=== PATIENT | female | born 1995 | race Caucasian/White ===

== ENCOUNTER 2017-01-24 16:50 | Emergency (ER) | payer SELFPAY ==
[2017-01-24] MEDS ORDERED: Lactated Ringer's 1,000 ML IV ONE (18:30)
--- NOTE | 2017-01-24 18:49 | OBDCSUM ---
Datetime: 01/24/2017 18:48 Discharged to, Provider: Home Follow up at, Provider: 2 days Follow up in weeks, Provider: clinic Discharge Comment, Provider: dc home labor ins given f/u in clinic in 2 days Discharge Diagnosis Prov Other: 39weeks false labor
--- NOTE | 2017-01-24 18:49 | OBHP ---
Datetime: 01/24/2017 18:47 Admit Comment, IP Provider: pt was examined ayt bed side ve closed x 2 ivf given dc home labor ins given f/u in clinic in 2 days FHR - Baseline A Provider: 150 Contraction Comments Provider: q1-5 Vital Signs Provider: Reviewed; Within Normal Limits NICHD Variability Prov Fetus A: Moderate 6-25bpm NICHD Accel Fetus A IP Provider: 15X15 FHR Category Provider Fetus A: Category I Dilatation, Provider: 0 Effacement, Provider: 0 Station, Provider: -3 Datetime: 01/24/2017 17:14 IP Adm Impression: Term, intrauterine IP Admit Plan: Observation/Evaluation Comments, ACOG Physical Exam: VS: 109/76 82 Gen: AAOx3, NAD Abd: soft, gravid, no fundal tenderness Ext: no clubbing, cyanosis, edema SVE: closed/thick/high EFM: 140, moderate variability, +accels, -decels CTX: q2-5min Bedside Sonogram - vertex presentation EGA AdmitDate IP: 39.4 IP Chief Complaint: Uterine contractions NICHD Decel Fetus A IP Provider: None
[2017-01-25 00:17] VITALS: BP 120/73; PULSE 74; TEMP 98.1
== END 2017-01-24 18:55 | disposition left against medical advice (07) ==
LOC: C.EROB 16:50
DX: O47.1 False labor at or after 37 completed weeks of gestation (principal); Z3A.39 39 weeks gestation of pregnancy
CPT/HCPCS: 99283; J7120

== ENCOUNTER 2017-01-26 17:23 | Emergency (ER) | payer SELFPAY ==
--- NOTE | 2017-01-26 18:57 | OBHP ---
Datetime: 01/26/2017 18:47 IP Adm Impression: Term, intrauterine ; No Active Labor IP Admit Plan: Observation/Evaluation; Discharge home Admit Comment, IP Provider: IUP at 39.6wks, recently emigrayted from [place] without records. She reports that she is almost due and started having pelvic pressure without vaginal bleeding, Feel s good movements. Export- Q 6, FHR- category 1, Cx-1/50/-3, Vtx presentation. Assessment: IUP at Term No Active labor Plan: Pt requests to go home and walk around and return when labor becomes active. Labor instructions given. kick count explained.. Pt to register with and OB clinic and return by Friday if no active labor. D/C home. Pelvic Type - PN: Adequate Extremities - PN: Normal Abdomen - PN: Normal Back - PN: Normal Breast - PN: Normal Lungs - PN: Normal Heart - PN: Normal Thyroid - PN: Normal Neurologic - PN: Normal HEENT - PN: Normal General - PN: Normal Presentation-Admit: Vertex FHR - Baseline A Provider: 136 Membranes, Provider: Intact Gestation - Est Wks by US: 39.6 EGA AdmitDate IP: 39.6 Vital Signs Provider: Reviewed IP Chief Complaint: Uterine contractions; Maternal discomfort NICHD Variability Prov Fetus A: Moderate 6-25bpm NICHD Accel Fetus A IP Provider: 15X15 FHR Category Provider Fetus A: Category I NICHD Decel Fetus A IP Provider: None Dilatation, Provider: 1 Effacement, Provider: 50 Station, Provider: -3 Genitourinary Exam: Normal DTRs - PN: Normal
[2017-01-26 23:02] VITALS: BP 102/66; PULSE 73; RESP 20; TEMP 97.3; O2SAT 99
== END 2017-01-26 19:01 | disposition home or self-care (01) ==
LOC: C.EROB 17:23
DX: O47.1 False labor at or after 37 completed weeks of gestation (principal); Z3A.39 39 weeks gestation of pregnancy

== ENCOUNTER 2017-01-27 03:29 | Inpatient (IN) | payer MEDICAID ==
[2017-01-27 04:38] VITALS: BMI 26.5
[2017-01-27] MEDS ORDERED: Penicillin G 5 Million Unit Vial IVPB ONE ×2 (04:44→05:43)
[2017-01-27] MEDS ORDERED: Lactated Ringer's 1,000 ML IV SCH (04:45)
[2017-01-27] MEDS ORDERED: Bupivacaine HCl 0.25% PF (10 ml) Inj ONE (05:06)
[2017-01-27] MEDS ORDERED: Bupivacaine 0.125%/FentaNYL 200 ML EPI ONE (05:07)
--- NOTE | 2017-01-27 05:16 | OBHP ---
Datetime: 01/27/2017 05:10 IP Adm Impression: Term, intrauterine ; Active labor IP Admit Plan: Admit to unit; Initiate labor protocol Admit Comment, IP Provider: IUP at 40wk c/o intense contraction pains since last night. She was eval uated here in the afternoon and return here with stronger contraction pains. Denies VB or LOF. [place]- Q 2-3 FHR- Category 1, Cx- 4/60/-3 Vtx Assessment: IUP at 40wks in Active LABOR pLAN: aDMIT TO lnd. mONITOR THE PROGRESS OF labor. Pelvic Type - PN: Adequate Extremities - PN: Normal Abdomen - PN: Normal Back - PN: Normal Breast - PN: Normal Lungs - PN: Normal Heart - PN: Normal Thyroid - PN: Normal Neurologic - PN: Normal HEENT - PN: Normal General - PN: Normal Presentation-Admit: Vertex FHR - Baseline A Provider: 140 Membranes, Provider: Intact Contraction Comments Provider: Q 2-3 Gestation - Est Wks by US: 40.0 EGA AdmitDate IP: 40.0 IP Chief Complaint: Uterine contractions; Maternal discomfort NICHD Variability Prov Fetus A: Moderate 6-25bpm NICHD Accel Fetus A IP Provider: [id number] FHR Category Provider Fetus A: Category I NICHD Decel Fetus A IP Provider: None Dilatation, Provider: 4 Effacement, Provider: 60 Station, Provider: -2 Genitourinary Exam: Normal DTRs - PN: Normal
[2017-01-27 05:30] LABS: BASO % 0.3 % (0.0-2.0); EOS % 0.5 % (0.0-4.0); HEMATOCRIT 33.8 % (34.0-47.0); LYMPH # 1.3 K/uL (1.0-4.3); MEAN CELL VOLUME 88.8 fL (81.0-99.0); MEAN CORPUSCULAR HGB CONC 34.9 g/dL (33.0-37.0); MEAN PLATELET VOLUME 8.6 fL (7.2-11.7); MONO # 0.7 K/uL (0.0-0.8); MONO % 9.5 % (0.0-10.0); NRBC % 0.1 % (0.0-2.0); RED CELL DISTRIBUTION WIDTH 13.6 % (11.5-14.5); WHITE BLOOD COUNT 7.8 K/uL (4.8-10.8)
[2017-01-27 05:40] LABS: CHLORIDE 103 mmol/L (98-107); POTASSIUM 3.8 mmol/L (3.6-5.2); RBC URINE 4 /hpf (0-3); SODIUM 136 mmol/L (132-148); URINE BILIRUBIN NEGATIVE (NEGATIVE); URINE BLOOD 1+ (NEGATIVE); URINE COLOR Yellow (YELLOW); URINE GLUCOSE (UA) NORMAL (Normal); URINE KETONE TRACE mg/dL (NEGATIVE); URINE LEUKOCYTE ESTERASE NEG Leu/uL (Negative); URINE PROTEIN NEGATIVE (NEGATIVE); URINE UROBILINOGEN NORMAL mg/dL (0.2-1.0); WBC URINE 3 /hpf (0-5)
[2017-01-27 05:42] LABS: GFR AFRICAN-AMERICAN > 60
[2017-01-27 05:43] LABS: ALKALINE PHOSPHATASE 156 U/L (38-126); ALT/SGPT 27 U/L (9-52); AST/SGOT 17 U/L (14-36); BILIRUBIN,TOTAL 1.1 mg/dL (0.2-1.3); BLOOD UREA NITROGEN 7 mg/dL (7-17); CALCIUM 9.2 mg/dl (8.6-10.4); CARBON DIOXIDE 18 mmol/L (22-30); GLUCOSE,RANDOM 70 mg/dL (65-105); TOTAL PROTEIN 7.1 g/dL (6.3-8.3)
[2017-01-27] MEDS ORDERED: Oxytocin 30 UNIT 30 UNITS/500 ML BAG IV PRN (07:09)
--- NOTE | 2017-01-27 07:09 | OBPN ---
Datetime: 01/27/2017 07:05 IP Progress Impression: Normal progression of labor IP Procedures: Sterile Vag Exam FHR - Baseline A Provider: 130 IP Progress Note Comment: pt was seen at bed side ve 4/80/-2 srom, meconium start pitocin anticipaye Vital Signs Provider: Reviewed; Within Normal Limits NICHD Accel Fetus A IP Provider: 15X15 FHR Category Provider Fetus A: Category I NICHD Variability Prov Fetus A: Moderate 6-25bpm Dilatation, Provider: 4 Effacement, Provider: 80 Station, Provider: -2 Datetime: 01/27/2017 05:10 Membranes, Provider: Intact Contraction Comments Provider: Q 2-3 Gestation - Est Wks by US: 40.0 Presentation-Admit: Vertex NICHD Decel Fetus A IP Provider: None
[2017-01-27] MEDS ORDERED: Dextrose 5%/Lactated Ringer's 1,000 ML IV SCH (08:15)
--- NOTE | 2017-01-27 08:45 | OBPN ---
Datetime: 01/27/2017 08:43 IP Progress Impression: Normal progression of labor IP Procedures: Sterile Vag Exam IP Progress Plan: Continue present management Contraction Comments Provider: q1-4 FHR - Baseline A Provider: 130 IP Progress Note Comment: pt was examined at bed side ve 6/80/-2 cont pitocin anticipate Vital Signs Provider: Reviewed; Within Normal Limits NICHD Accel Fetus A IP Provider: 15X15 FHR Category Provider Fetus A: Category I NICHD Variability Prov Fetus A: Moderate 6-25bpm Dilatation, Provider: 6 Effacement, Provider: 80 Station, Provider: -2 NICHD Decel Fetus A IP Provider: Variable
--- NOTE | 2017-01-27 12:37 | OBPN ---
Datetime: 01/27/2017 12:34 IP Progress Impression: Normal progression of labor IP Procedures: Sterile Vag Exam FHR - Baseline A Provider: 130 IP Progress Note Comment: pt was examined at bed side ve fd/100/0 cont pitocin will start pushing Vital Signs Provider: Reviewed; Within Normal Limits NICHD Variability Prov Fetus A: Moderate 6-25bpm Dilatation, Provider: 10 Effacement, Provider: 100 Station, Provider: 0 NICHD Decel Fetus A IP Provider: Variable
[2017-01-27] MEDS ORDERED: Benzocaine/Menthol 20%-0.5% Topical Spray (60 ml) TOP PRN (12:53)
[2017-01-27] MEDS ORDERED: Oxycodone/Acetaminophen 5/325 mg Tab PO PRN (12:53)
[2017-01-27] MEDS ORDERED: cefOXitin IV 1 gm in Dextrose 1 GM/50 ML BAG IVPB ONE (13:10)
[2017-01-27] MEDS ORDERED: Oxytocin 20 units in LR 2,000 ML IV ONE (13:13)
[2017-01-27] MEDS ORDERED: cefOXitin IV 2 gm in Dextrose 2 GM/50 ML BAG IVPB ONE (13:13)
[2017-01-27] MEDS ORDERED: Oxytocin 10 Units/ml Inj ONE (13:14)
--- NOTE | 2017-01-27 13:17 | PCM.SURG1 ---
Surgeon's Initial Post Op Note - Surgeon's Notes Surgeon: dr parra Cardiopulmonary Technician: dr herman Anesthesia Administered By: dr bright Pre-Operative Diagnosis: 21 yr arrest of descent Operative Findings: see the op report Post-Operative Diagnosis: same with dop Operation Performed: primary section Specimen/Specimens Removed: cord gas. cord blood. placente Estimated Blood Loss: EBL {In ML}: 800 Blood Products Given: N/A Drains Used: No Drains Post-Op Condition: Good Date of Surgery/Procedure: 01/27/17 Time of Surgery/Procedure: 15:00
[2017-01-27] MEDS ORDERED: Sodium Bicarbonate (8.4%) 50 mEq Vial ONE (13:30)
[2017-01-27] MEDS ORDERED: Propofol 10 mg/ml Inj (20 ML) ONE (13:44)
[2017-01-27] MEDS ORDERED: Succinylcholine Chloride 20 mg/ml Syr (5 ml) IV ONE (13:54)
[2017-01-27] MEDS ORDERED: Midazolam 2 MG/2 ML VIAL ONE (13:54)
[2017-01-27] MEDS ORDERED: Ketamine 50 mg/ml Inj (10 ml) ONE (13:55)
[2017-01-27] MEDS ORDERED: Morphine 1 mg/ml preservative-free Inj(Duramorph) ONE (14:09)
[2017-01-27] MEDS ORDERED: cefOXitin IV 2 gm in Saline 2 GM in Sodium Chloride 0.9% 50 ML IV STA (14:30)
[2017-01-27] MEDS ORDERED: DiphenhydrAMINE 50 mg/ml Inj IVP PRN (14:59)
[2017-01-27] MEDS: Simethicone 80 mg Chewtab PO SCH ×2 (17:05→22:30)
--- NOTE | 2017-01-28 02:51 | OP ---
PROCEDURE DATE: 01/27/2017 PREOPERATIVE DIAGNOSIS: A 21-year-old 1, para 0 at 40 weeks . POSTOPERATIVE DIAGNOSIS: A 21-year-old 1, para 0 at 40 weeks . PROCEDURE: Primary . SURGEON: Allan Vargas MD POOL MANAGER: Stewart Hurd MD, who was present throughout the surgery for exposure, retraction, pushing at the time of the delivery. TYPE OF ANESTHESIA: Epidural. ANESTHESIA ADMINISTERED BY: Kemar Bui MD ESTIMATED BLOOD LOSS: 800 mL. COMPLICATIONS: None. DESCRIPTION OF PROCEDURE: After informed consent was obtained, the patient was brought to the operating room and placed on table, where epidural anesthesia was given. The patient was prepped and draped in normal sterile fashion. About 2 cm above the pubic bone, a skin incision was made with a knife, the subcutaneous cut with a Bovie. The fascia was then excised on both the sides using curved Wilson scissors. The fascia was from the site of the pubic bone and at the side of the umbilicus. Rectus muscle was and was excised. Peritoneum was . We went bluntly into the abdominal cavity. Bladder blade was placed. Bladder flap was created. Lower uterine segment incision was made with a knife. We did this on both sides using curved Wilson scissors. Baby was delivered in a DOP position. Now cord was clamped and cut. Baby was handed to the awaiting herd tester. Cord gas was taken. Placenta delivered manually and sent to the Pathology. Uterus was exteriorized and cleared of all clots and debris. It was boggy, so lot of massage was done. Then the extra Pitocin, 40 units of Pitocin was given and Methergine was given. Lot of massage was done and it was better. Uterine incision was closed using #1 Vicryl in running interlocking fashion. Second layer was closed with the same stitch. Cul-de-sac was cleared of all the clots and debris. Uterus was returned back to the abdominal cavity. Gutters were cleared of all the clots and debris. After that, peritoneum was closed using 2-0 Vicryl in running interlocking fashion. Muscle was closed using 2-0 Vicryl in running interlocking fashion. The fascia was closed using #1 Vicryl in running interlocking fashion. Subcutaneous tissue was closed with 0 Vicryl in interrupted fashion. Skin was closed using savanna. The patient tolerated the procedure well. Lap, sponge, and instrument counts were correct x2. Allan Vargas MD
[2017-01-28 08:31] LABS: HEMATOCRIT 29.5 % (34.0-47.0); MEAN CELL VOLUME 90.3 fL (81.0-99.0); MEAN CORPUSCULAR HGB CONC 34.3 g/dL (33.0-37.0); MEAN PLATELET VOLUME 8.5 fL (7.2-11.7); RED CELL DISTRIBUTION WIDTH 14.1 % (11.5-14.5)
[2017-01-28 08:33] LABS: WHITE BLOOD COUNT 12.2 K/uL (4.8-10.8)
[2017-01-28] MEDS: Simethicone 80 mg Chewtab PO SCH ×4 (09:25→22:32)
--- NOTE | 2017-01-28 11:04 | OBPPN ---
Datetime: 01/28/2017 11:00 PP Pain Prov: Within normal limits PP Nausea Prov: Denies PP Flatus Prov: Yes PP BM Prov: No PP Heart Prov: Normal PP Lungs Prov: Normal PP Abdomen/Uterus Prov: Normal PP Lochia Prov: Normal PP CVA Tenderness Prov: Normal PP Extremities Prov: Normal PP C/S Incision Prov: Normal PP Progress Prov: Normal PP Impression Prov: Normal progression PP Plan Prov: Continue present management PP Progress Note Prov: S-patient states that her pain is well controlled.Breast feeding.Denies nause a, vomiting, headache, chest pain, shortness of breath, numbness or tingling in hands and feet O-VS Reviewed Abdomen soft and nontender Fundus firm and below umbilicus extremities no calf tenderness Incision clean dry and intact A/P Patient s/p csection pod 1 doingw ell -continue routine post op care -follow up am cbc -monitor closely Vital Signs Provider PP: Reviewed; Within Normal Limits
[2017-01-28] MEDS: Oxycodone/Acetaminophen 5/325 mg Tab PO PRN (19:41)
[2017-01-29] MEDS: Oxycodone/Acetaminophen 5/325 mg Tab PO PRN ×2 (09:45→17:42)
[2017-01-29] MEDS: Simethicone 80 mg Chewtab PO SCH ×4 (09:45→22:39)
[2017-01-29 11:22] LABS: BASO % 0.2 % (0.0-2.0); EOS # 0.3 K/uL (0.0-0.7); EOS % 2.8 % (0.0-4.0); HEMATOCRIT 29.9 % (34.0-47.0); LYMPH % 9.5 % (20.0-40.0); MEAN CELL VOLUME 91.1 fL (81.0-99.0); MEAN CORPUSCULAR HEMOGLOBIN 31.3 pg (27.0-31.0); MEAN CORPUSCULAR HGB CONC 34.3 g/dL (33.0-37.0); MEAN PLATELET VOLUME 8.5 fL (7.2-11.7); MONO # 0.8 K/uL (0.0-0.8); MONO % 7.7 % (0.0-10.0); PLATELET COUNT 246 K/uL (130-400); RED CELL DISTRIBUTION WIDTH 14.2 % (11.5-14.5); WHITE BLOOD COUNT 10.6 K/uL (4.8-10.8)
[2017-01-29 12:16] LABS: EOSINOPHIL 2 % (0-4); NEUTROPHIL 77 % (50-75); TOTAL CELLS COUNTED 100
[2017-01-30 08:33] VITALS: BP 104/60
[2017-01-30] MEDS: Simethicone 80 mg Chewtab PO SCH ×2 (10:19→13:17)
--- NOTE | 2017-01-30 20:10 | OBPPN ---
Datetime: 01/30/2017 19:56 PP Pain Prov: Within normal limits PP Nausea Prov: Denies PP Flatus Prov: Yes PP BM Prov: No PP Breasts Prov: Normal PP Heart Prov: Normal PP Lungs Prov: Normal PP Abdomen/Uterus Prov: Normal PP Lochia Prov: Normal PP Vulva/Perineum Prov: Not Done PP CVA Tenderness Prov: Normal PP Extremities Prov: Normal PP C/S Incision Prov: Normal PP Progress Prov: Normal PP Comments Phys Exam Prov: Abdomen: (+)BS. Softly distended. Fundus firm, mobile, mild and approp riately tender at umbilicus. Mild lochia rubra. All other systems reviewed and are negative PP Impression Prov: Normal progression PP Plan Prov: Discharge PP Progress Note Prov: [facility] spanish medical interpreter ID#[id number] Patient received in room 459 earlier this morning; eating breakfast with her . Breast- and bottlefeeding. Voiding and ambulating without difficulty. Pain scale in incision 8/10 to 10/10 prior to medication; after meds, 4/10. Denies nausea, vomiting or BM. P.E.: as above. WD in NAD. Awake, alert, oriented to time, person and place. Pleasant and cooperat mari - POD#1 H/H 10.2/29.9 Rh(-) Assessment: POD#3 21 y.o. P1, S/P primary LTCS for arrest of descent. Afebrile, vital signs stabl e. Returning GI and functions. Rh (-), S/P Rhogam 01/28/17. Undecided re: contraception. Clinica lly stable. Plan: 1) Discharge home 2) See full discharge instructions Vital Signs Provider PP: Reviewed; Within Normal Limits
--- NOTE | 2017-01-30 20:13 | OBDCSUM ---
Datetime: 01/30/2017 14:43 Discharged to, Provider: Home Follow up at, Provider: JOEL Disch Instr Activity: May Shower Disch Instr Diet: Regular Discharge Diet restrict Prov: none Discharge Diagnosis, Provider: Term Delivered Discharge Time: 01/30/2017 14:44 Follow up in weeks, Provider: 02/03/17 Disch Referrals: None Contraception discussed, Prov: Yes Disch Activity Restrictions: No exercising; No lifting; No sexual activity; Nothing in vagina - Inte rcourse, tampons, douche Discharge Diagnosis Prov Other: Status post primary section Arrest of descent Contraception counseling Anemia Contraception after Delivery: Undecided
[2017-01-30 22:10] VITALS: PULSE 90; RESP 20; TEMP 98.2; O2SAT 97
== END 2017-01-30 16:35 | disposition home or self-care (01) | DRG 766 ==
LOC: C.EROB 03:29 → C.4D 04:27 → C.4M 16:40
PROVIDERS: ADMIT Obstetrics & Gynecology; ATTEND Obstetrics & Gynecology
PROC: 10D00Z1 Extraction of Products of Conception, Low, Open Approach (ICD-10-PCS; principal; 2017-01-27)
DX: O66.9 Obstructed labor, unspecified (principal); O48.0 Post-term pregnancy; Z3A.40 40 weeks gestation of pregnancy; O99.02 Anemia complicating childbirth; O62.1 Secondary uterine inertia; Z37.0 Single live birth